=== PATIENT | male | born 1945 | race Caucasian/White ===

== ENCOUNTER 2018-03-27 11:06 | Inpatient (IN) | payer OTHER ==
[2018-03-27] MEDS ORDERED: HUMAN PROTHROMBIN COMPLX(PCC) 2,500 UNIT/100 ML VIAL IV ONE (11:33)
[2018-03-27] MEDS ORDERED: TRANEXAMIC ACID 1,000 MG in NS 500 ML IV ONE (11:36)
[2018-03-27] MEDS ORDERED: TRANEXAMIC ACID 1,000 MG in NS 100 ML IV ONE (11:36)
[2018-03-27 11:41] LABS: PLATELET COUNT 147 10^3/uL (150-400)
[2018-03-27 11:50] LABS: INR 1.73 (0.83-1.16); PROTIME(PATIENT) 20.4 SEC (12.0-15.0)
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
[2018-03-27] MEDS ORDERED: ONDANSETRON 4 MG/2 ML VIAL IVP PRN (12:09)
[2018-03-27] MEDS ORDERED: ONDANSETRON DISINTEGRATING 4 MG TAB PO PRN (12:09)
[2018-03-27] MEDS ORDERED: NALOXONE HCL 0.4 MG/ML INJ IVP PRN (12:09)
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
[2018-03-27] MEDS: levETIRAcetam 750 MG in NS 100 ML IV SCH ×2 (13:28→22:15)
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
--- NOTE | 2018-03-27 16:39 | NEUSURGPN ---
Assessment/Plan: Repeat HCT reviewed by Dr Moser - appears stable. No further scans unless pt has a decline in neuro status. Will follow clinically. Ok for Q2 neuro checks. Dr Moser discussed with Dr Horton of Trauma team as well. - Physician Discussed Patient with : Shanti Neurosurgery Physical Exam - Vitals, I&O, Labs I and O 03/26/18 03/27/18 03/28/18 05:59 05:59 05:59 Intake Total 391 Balance 391 Weight 84.6 kg Intake: IV Infused (ml) 391 Vital Signs Temp Pulse Resp BP Pulse Ox 36.4 C 64 16 143/70 H 99 03/27/18 14:16 03/27/18 14:16 03/27/18 14:16 03/27/18 14:16 03/27/18 14:16 ICD10 Worksheet Patient Problems: Problems Problem Status Onset Anticoagulated Acute Facial fracture Acute Intraparenchymal hemorrhage of brain Acute Rib fractures Acute
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
[2018-03-27] MEDS: ACETAMINOPHEN 325 MG TAB PO PRN (18:46)
[2018-03-27] MEDS ORDERED: FAMOTIDINE 20 MG/NACL 50 ML IV SCH (21:00)
[2018-03-27] MEDS: traMADol 50 MG TAB PO PRN (22:17)
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
[2018-03-28] MEDS: traMADol 50 MG TAB PO PRN ×2 (07:38→20:44)
[2018-03-28] MEDS: FAMOTIDINE 20 MG TAB PO SCH ×2 (07:56→20:44)
[2018-03-28] MEDS: levETIRAcetam 500 MG TAB PO SCH ×2 (07:56→20:44)
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
[2018-03-28 08:24] LABS: INR 0.99 (0.83-1.16); PROTIME(PATIENT) 13.3 SEC (12.0-15.0)
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
[2018-03-28] MEDS: ACETAMINOPHEN 325 MG TAB PO PRN (11:42)
[2018-03-28] MEDS: CETIRIZINE 10 MG TAB PO SCH (11:42)
[2018-03-28] MEDS: LIDOCAINE 4%/MENTHOL 1% PATCH TD SCH (11:43)
[2018-03-28] MEDS ORDERED: LIDOCAINE 1% 300 MG/30 ML SDV ONE (12:13)
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
--- NOTE | 2018-03-28 15:25 | CPEKG ---
Heart Rate: 52 RR Interval: 1154 P-R Interval: 156 QRSD Interval: 108 QT Interval: 436 QTC Interval: 406 P Hudson: 71 QRS Hudson: 88 T Wave Hudson: 23 EKG Severity - NORMAL ECG - EKG Impression: SINUS RHYTHM Electronically Signed By: Bulmaro Portillo 05-Apr-2018 16:36:46
[2018-03-28] MEDS ORDERED: TDAP ADULT 0.5 ML INJ (BOOSTRIX) IM ONE (15:30)
[2018-03-28] MEDS: HYDROCODONE/APAP 5/325 TAB PO PRN ×2 (17:40→23:53)
[2018-03-28] MEDS: LATANOPROST 0.005% 2.5 ML OPHT DROPS EACHEYE SCH (20:43)
[2018-03-29] MEDS: PATCH REMOVAL 1 EA PATCH TD SCH ×2 (04:52→22:53)
[2018-03-29] MEDS: LIDOCAINE 4%/MENTHOL 1% PATCH TD SCH (08:11)
[2018-03-29] MEDS: FAMOTIDINE 20 MG TAB PO SCH ×2 (08:12→22:59)
[2018-03-29] MEDS: levETIRAcetam 500 MG TAB PO SCH ×4 (08:12→23:44)
[2018-03-29] MEDS: CETIRIZINE 10 MG TAB PO SCH (08:13)
[2018-03-29] MEDS ORDERED: PNEUMOC 13-VAL CONJ-DIP CRM/PF 0.5 ML SYR IM ONE (08:27)
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
[2018-03-29] MEDS: IBUPROFEN 600 MG TAB PO SCH ×2 (16:30→22:59)
--- NOTE | 2018-03-29 16:36 | ASMTCMCOM ---
CM Note CM Note Notes: Per rounds, Pt continues confused with delayed responses, but his reports he "seems more himself" and is beginning to demonstrate some short-term memory. He will be moved to #[id number]. D/C Plan: TBD Date Signed: 03/29/2018 04:35 PM Electronically Signed By:Rose Mary Davis
[2018-03-29] MEDS: LATANOPROST 0.005% 2.5 ML OPHT DROPS EACHEYE SCH (22:59)
[2018-03-29] MEDS ORDERED: LORazepam 2 MG/ML INJ IVP PRN (23:35)
[2018-03-30] MEDS: IBUPROFEN 600 MG TAB PO SCH ×4 (06:13→21:54)
[2018-03-30] MEDS: CETIRIZINE 10 MG TAB PO SCH (08:16)
[2018-03-30] MEDS: levETIRAcetam 500 MG TAB PO SCH ×2 (08:16→21:55)
[2018-03-30] MEDS: FAMOTIDINE 20 MG TAB PO SCH ×2 (08:17→21:54)
[2018-03-30] MEDS: ENOXAPARIN 40 MG/0.4 ML SYR SC SCH (08:17)
[2018-03-30] MEDS: LIDOCAINE 4%/MENTHOL 1% PATCH TD SCH (08:17)
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
--- NOTE | 2018-03-30 16:04 | ASMTCMCOM ---
CM Note CM Note Notes: Pt accepted at [facility] inpatient for admission tomorrow Monday03/30/18. RN station for weekend is [phone]. Family to transport, son resides in [place] so he will need some time to get to [place]. Date Signed: 03/30/2018 04:03 PM Electronically Signed By:ARVIND Rivera
[2018-03-30] MEDS: LATANOPROST 0.005% 2.5 ML OPHT DROPS EACHEYE SCH (21:57)
[2018-03-30] MEDS: PATCH REMOVAL 1 EA PATCH TD SCH (22:09)
[2018-03-31] MEDS: IBUPROFEN 600 MG TAB PO SCH (05:41)
[2018-03-31 08:23] VITALS: BP 131/69
[2018-03-31] MEDS: ACETAMINOPHEN 325 MG TAB PO PRN (09:19)
[2018-03-31] MEDS: CETIRIZINE 10 MG TAB PO SCH (09:19)
[2018-03-31] MEDS: levETIRAcetam 500 MG TAB PO SCH (09:19)
[2018-03-31] MEDS: FAMOTIDINE 20 MG TAB PO SCH (09:19)
[2018-03-31] MEDS: ENOXAPARIN 40 MG/0.4 ML SYR SC SCH (09:20)
[2018-03-31] MEDS: LIDOCAINE 4%/MENTHOL 1% PATCH TD SCH (09:20)
[2018-03-31] MEDS ORDERED: MAGNESIUM HYDROXIDE 30 ML UDCUP PO PRN (10:36)
[2018-03-31] MEDS ORDERED: BISACODYL 10 MG SUPP PR PRN (10:36)
[2018-03-31] MEDS ORDERED: LACTULOSE 20 GM/30 ML UDCUP PO PRN (10:36)
[2018-03-31] MEDS ORDERED: IBUPROFEN 600 MG TAB PO PRN (10:41)
[2018-03-31] MEDS ORDERED: SENNOSIDES/DOCUSATE SODIUM TAB PO SCH (10:45)
[2018-03-31] MEDS ORDERED: RIVAROXABAN 10 MG TAB PO SCH (10:45)
[2018-03-31] MEDS ORDERED: POLYETHYLENE GLYCOL 3350 17 GM PKT PO SCH (10:45)
--- NOTE | 2018-03-31 11:48 | PDIAF ---
- Diagnosis Code Status: Full Code - Medication Management Discharge Medications: Medications to Continue on Transfer Aspirin [Aspirin 81mg (*)] 81 mg PO DAILY 03/27/18 [Last Taken 03/27/18] Cetirizine [ZyrTEC 10 mg (*)] 10 mg PO DAILY 03/27/18 [Last Taken 03/27/18] Glucosamine/Chondroitin [Glucosamine/Chondroitin (*)] 1 each PO DAILY 03/27/18 [ Last Taken 03/27/18] Latanoprost 0.005% [Xalatan 0.005% (*)] 1 drops EACHEYE HS 03/27/18 [Last Taken 03/26/18] Acetaminophen [Tylenol 325mg (*)] 325 - 650 mg PO Q4HRS PRN tab 03/31/18 [Last Taken Unknown] Enoxaparin [Lovenox 40 MG (*)] 40 mg SC DAILY syr 03/31/18 [Last Taken Unknown] Hydrocodone/APAP 5/325 [[place]very 5/325 (*)] 1 - 2 tab PO Q4H PRN tab 03/31/18 [ Last Taken Unknown] Ibuprofen [Motrin (*)] 600 mg PO QID PRN tab 03/31/18 [Last Taken Unknown] Ondansetron Odt [Zofran Odt 4 mg (*)] 4 mg PO Q4HRS PRN tab 03/31/18 [Last Taken Unknown] Polyethylene Glycol 3350 [Miralax 17 gm (*)] 17 gm PO DAILY pkt 03/31/18 [Last Taken Unknown] Sennosides/Docusate Sodium [Senokot-S] 1 - 2 tab PO BID tab 03/31/18 [Last Taken Unknown] levETIRAcetam [Keppra 500 mg (*)] 750 mg PO BID tab 03/31/18 [Last Taken Unknown] traMADol [Ultram 50 mg (*)] 50 mg PO Q6 PRN tab 03/31/18 [Last Taken Unknown] Additional Medication Instructions: resume xarelto on april 03 and discontinue lovenox then Discharge Medications: Refer to the Discharge Home Medication list for PRN reason. - Orders Services needed: Registered Nurse, Physical Therapy, Occupational Therapy, Speech Language Pathologist Diet Recommendation: no restrictions on diet Diet Texture: Regular Texture Diet Wound Care Instructions: bacitracin to abrasions daily and prn. shower, soap and water prn Activity/Weight Bearing Restrictions: as tolerated Additional Instructions: Follow up with Dr Moser in 3 weeks, call office to schedule or with any issues @ [phone]. Resume Xarelto on April 03 - lovenox then - Follow Up Care Current Providers and Referrals: Marcos Moser MD [Medical Doctor] - (Follow up in 3 weeks)
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
--- NOTE | 2018-03-31 13:03 | ASMTDCNOTE ---
Case Management Discharge Discharge Order Complete? Answers: Yes Patient to Obtain Answers: Other Notes: [facility] inpt rehab Medications Transportation Arranged Answers: Family/Friends Faxed Final Orders Answers: Yes Agency/Facility Transfer Answers: Yes Report Printed & Faxed to Receiving Agency Family Notified Answers: Yes Notes: on-site Discharge Comments Notes: Pt will dc today to [facility] inpt rehab, he will be transported by fam memberOneyda, radha w/[facility] from inpt rehab and they are ready to accept. Orders/info faxed to dotty Nu[facility] w/Dr Rivera and RN who will call report to inpt rehab. Date Signed: 03/31/2018 01:03 PM Electronically Signed By:Lyric El RN
[2018-04-01] MEDS ORDERED: GLUCOSAMINE/CHONDROITIN CAP PO SCH (09:00)
[2018-04-01] MEDS ORDERED: ASPIRIN 81 MG CHEWABLE TAB PO SCH (09:00)
[2018-04-01] MEDS ORDERED: ENOXAPARIN 40 MG/0.4 ML SYR SC SCH (09:00)
== END 2018-03-31 14:00 | DRG 86 ==
LOC: EDUNIT# → F2N 13:48 → F3N 03-29 12:26
PROVIDERS: ADMIT Surgery; ATTEND Surgery
PROC: 30283B1 Transfusion of Nonautologous 4-Factor Prothrombin Complex Concentrate into Vein, Percutaneous Approach (ICD-10-PCS; principal; 2018-03-27)
DX: S06.6X1A Traumatic subarachnoid hemorrhage with loss of consciousness of 30 minutes or less, initial encounter (principal); S06.381A Contusion, laceration, and hemorrhage of brainstem with loss of consciousness of 30 minutes or less, initial encounter; R40.2411 Glasgow coma scale score 13-15, in the field [EMT or ambulance]; S02.40CA Maxillary fracture, right side, initial encounter for closed fracture; S22.41XA Multiple fractures of ribs, right side, initial encounter for closed fracture; V17.0XXA Pedal cycle driver injured in collision with fixed or stationary object in nontraffic accident, initial encounter; Y92.482 Bike path as the place of occurrence of the external cause; Y93.55 Activity, bike riding; Y99.8 Other external cause status; R33.9 Retention of urine, unspecified; T40.2X5A Adverse effect of other opioids, initial encounter; R41.844 Frontal lobe and executive function deficit; D68.51 Activated protein C resistance; Z86.711 Personal history of pulmonary embolism; Z86.718 Personal history of other venous thrombosis and embolism; Z79.02 Long term (current) use of antithrombotics/antiplatelets; H40.9 Unspecified glaucoma; M50.320 Other cervical disc degeneration, mid-cervical region, unspecified level; Z87.891 Personal history of nicotine dependence; Z23 Encounter for immunization
CPT/HCPCS: 82565-PO; 92507-GN; 92523-GN; 96374; 97110-GP; 97112-GP; 97116-GP; 97162-GP; 97166-GO; 97530-GO; 97535-GO; C9132; G0009; G0390; G0480; G0515-GO; G8978-GP-CJ; G8979-GP-CI; G8987-GO-CJ; G8988-GO-CI; G9165-GN-CJ; G9166-GN-CI; J1650; J1953; J2060; J2270

== ENCOUNTER 2018-03-30 14:48 | Inpatient (IN) | payer OTHER ==
[2018-03-31] MEDS ORDERED: traMADol 50 MG TAB PO PRN (16:33)
[2018-03-31] MEDS ORDERED: ONDANSETRON DISINTEGRATING 4 MG TAB PO PRN (16:33)
[2018-03-31] MEDS ORDERED: HYDROCODONE/APAP 5/325 TAB PO PRN (16:33)
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
[2018-03-31] MEDS: LATANOPROST 0.005% 2.5 ML OPHT DROPS EACHEYE SCH (21:55)
[2018-03-31] MEDS: SENNOSIDES/DOCUSATE SODIUM TAB PO SCH (21:56)
[2018-03-31] MEDS: levETIRAcetam 500 MG TAB PO SCH (21:56)
[2018-03-31] MEDS: FAMOTIDINE 20 MG TAB PO SCH (21:56)
[2018-03-31] MEDS: PATCH REMOVAL 1 EA PATCH TD SCH (23:10)
[2018-04-01] MEDS: LIDOCAINE 4%/MENTHOL 1% PATCH TD SCH (09:51)
[2018-04-01] MEDS: ASPIRIN 81 MG CHEWABLE TAB PO SCH (09:52)
[2018-04-01] MEDS: SENNOSIDES/DOCUSATE SODIUM TAB PO SCH ×2 (09:52→20:37)
[2018-04-01] MEDS: ENOXAPARIN 40 MG/0.4 ML SYR SC SCH (09:53)
[2018-04-01] MEDS: levETIRAcetam 500 MG TAB PO SCH ×2 (09:53→20:35)
[2018-04-01] MEDS: FAMOTIDINE 20 MG TAB PO SCH ×2 (09:53→20:36)
[2018-04-01] MEDS: CETIRIZINE 10 MG TAB PO SCH (09:53)
[2018-04-01] MEDS: GLUCOSAMINE/CHONDROITIN CAP PO SCH (09:53)
[2018-04-01] MEDS: POLYETHYLENE GLYCOL 3350 17 GM PKT PO SCH (09:54)
[2018-04-01] MEDS: ACETAMINOPHEN 325 MG TAB PO PRN (11:29)
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
[2018-04-01] MEDS ORDERED: MAGNESIUM HYDROXIDE 30 ML UDCUP PO PRN (14:04)
[2018-04-01] MEDS ORDERED: BISACODYL 10 MG SUPP PR PRN (14:04)
[2018-04-01] MEDS: IBUPROFEN 600 MG TAB PO PRN (15:50)
--- NOTE | 2018-04-01 15:57 | PDOREHIP ---
Admission [facility] - Admission - 3 Day Assessment Period Admission Date/Day 1: 03/31/18 Day 2: 04/01/18 Day 3: 04/02/18 - Active Diagnoses Comorbidities and Co-existing Conditions at Admission: [id number]. None of the Above - Skin Conditions Unhealed Pressure Ulcer (1 or more/Stage 1 or >)-Admission: 0. No
[2018-04-01] MEDS: LATANOPROST 0.005% 2.5 ML OPHT DROPS EACHEYE SCH (20:37)
[2018-04-02] MEDS: PATCH REMOVAL 1 EA PATCH TD SCH ×2 (06:19→20:23)
[2018-04-02] MEDS: LIDOCAINE 4%/MENTHOL 1% PATCH TD SCH (09:17)
[2018-04-02] MEDS: ACETAMINOPHEN 325 MG TAB PO PRN ×2 (09:18→18:38)
[2018-04-02] MEDS: GLUCOSAMINE/CHONDROITIN CAP PO SCH (09:18)
[2018-04-02] MEDS: FAMOTIDINE 20 MG TAB PO SCH ×2 (09:19→20:23)
[2018-04-02] MEDS: SENNOSIDES/DOCUSATE SODIUM TAB PO SCH ×2 (09:19→20:23)
[2018-04-02] MEDS: levETIRAcetam 500 MG TAB PO SCH ×2 (09:19→20:22)
[2018-04-02] MEDS: ASPIRIN 81 MG CHEWABLE TAB PO SCH (09:20)
[2018-04-02] MEDS: ENOXAPARIN 40 MG/0.4 ML SYR SC SCH (09:20)
[2018-04-02] MEDS: POLYETHYLENE GLYCOL 3350 17 GM PKT PO SCH (09:20)
[2018-04-02] MEDS: CETIRIZINE 10 MG TAB PO SCH (09:28)
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
[2018-04-02] MEDS: IBUPROFEN 600 MG TAB PO PRN (14:17)
[2018-04-02] MEDS: LATANOPROST 0.005% 2.5 ML OPHT DROPS EACHEYE SCH (20:22)
[2018-04-03] MEDS: LIDOCAINE 4%/MENTHOL 1% PATCH TD SCH (10:20)
[2018-04-03] MEDS: FAMOTIDINE 20 MG TAB PO SCH ×2 (10:21→20:02)
[2018-04-03] MEDS: CETIRIZINE 10 MG TAB PO SCH (10:21)
[2018-04-03] MEDS: ASPIRIN 81 MG CHEWABLE TAB PO SCH (10:21)
[2018-04-03] MEDS: levETIRAcetam 500 MG TAB PO SCH ×2 (10:21→20:02)
[2018-04-03] MEDS: SENNOSIDES/DOCUSATE SODIUM TAB PO SCH ×2 (10:21→20:02)
[2018-04-03] MEDS: GLUCOSAMINE/CHONDROITIN CAP PO SCH (10:21)
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
[2018-04-03] MEDS: POLYETHYLENE GLYCOL 3350 17 GM PKT PO SCH (10:22)
[2018-04-03] MEDS: RIVAROXABAN 20 MG TAB PO SCH (10:22)
[2018-04-03] MEDS: LATANOPROST 0.005% 2.5 ML OPHT DROPS EACHEYE SCH (20:03)
[2018-04-03] MEDS: PATCH REMOVAL 1 EA PATCH TD SCH (20:05)
[2018-04-04 06:05] VITALS: BP 129/73
[2018-04-04] MEDS: ACETAMINOPHEN 325 MG TAB PO PRN (07:37)
[2018-04-04] MEDS: POLYETHYLENE GLYCOL 3350 17 GM PKT PO SCH (09:24)
[2018-04-04] MEDS: GLUCOSAMINE/CHONDROITIN CAP PO SCH (09:24)
[2018-04-04] MEDS: SENNOSIDES/DOCUSATE SODIUM TAB PO SCH (09:24)
[2018-04-04] MEDS: LIDOCAINE 4%/MENTHOL 1% PATCH TD SCH (09:24)
[2018-04-04] MEDS: ASPIRIN 81 MG CHEWABLE TAB PO SCH (09:24)
[2018-04-04] MEDS: RIVAROXABAN 20 MG TAB PO SCH (09:24)
[2018-04-04] MEDS: CETIRIZINE 10 MG TAB PO SCH (09:24)
[2018-04-04] MEDS: levETIRAcetam 500 MG TAB PO SCH (09:24)
[2018-04-04] MEDS: FAMOTIDINE 20 MG TAB PO SCH (09:24)
--- NOTE | 2018-04-04 12:18 | PDOREHIP ---
Admission [facility] - Admission - 3 Day Assessment Period Admission Date/Day 1: 03/31/18 Day 2: 04/01/18 Day 3: 04/02/18 Discharge [facility] - Discharge - 3 Day Assessment Period 2 Days Prior to Anticipated Discharge Date: 04/04/18 1 Day Prior to Anticipated Discharge Date: 04/05/18 Anticipated Discharge Date: 04/06/18 - Discharge Skin Conditions Unhealed Pressure Ulcer (1 or more/Stage 1 or >)-Discharge: 0. No
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
== END 2018-04-04 16:18 | disposition home or self-care (01) | DRG 945 ==
LOC: BREH 03-31 14:35
PROVIDERS: ADMIT Internal Medicine; ATTEND Internal Medicine
PROC: F0636ZZ Communicative/Cognitive Integration Skills Treatment of Neurological System - Whole Body (ICD-10-PCS; principal; 2018-03-31)
PROC: F08Z7ZZ Vocational Activities and Functional Community or Work Reintegration Skills Treatment (ICD-10-PCS; principal; 2018-03-31)
PROC: F07M3ZZ Motor Function Treatment of Musculoskeletal System - Whole Body (ICD-10-PCS; principal; 2018-03-31)
DX: S06.38 Contusion, laceration, and hemorrhage of brainstem (principal); S06.6X9D Traumatic subarachnoid hemorrhage with loss of consciousness of unspecified duration, subsequent encounter; S02.40CD Maxillary fracture, right side, subsequent encounter for fracture with routine healing; S22.41XD Multiple fractures of ribs, right side, subsequent encounter for fracture with routine healing; V17 Pedal cycle rider injured in collision with fixed or stationary object; Y92.482 Bike path as the place of occurrence of the external cause; Y93.55 Activity, bike riding; Y99.8 Other external cause status; G81.91 Hemiplegia, unspecified affecting right dominant side; R41.841 Cognitive communication deficit; D68.51 Activated protein C resistance; Z86.711 Personal history of pulmonary embolism; Z86.718 Personal history of other venous thrombosis and embolism; Z79.02 Long term (current) use of antithrombotics/antiplatelets; H40.9 Unspecified glaucoma; K59.03 Drug induced constipation
CPT/HCPCS: 92507-GN; 92523-GN; 97112-GP; 97116-GP; 97161-GP; 97165-GO; 97530-GO; 97530-GP; 97535-GO; G0515-GO; J1650